=== PATIENT | female | born 1990 | race Caucasian/White ===

== ENCOUNTER 2022-07-02 16:09 | Outpatient (CLI) | payer OTHER, SELFPAY ==
[2022-07-02 12:40] LABS: Cholesterol* 186 mg/dL (90-199); HDL Cholesterol* 64 mg/dL (>=50); LDL Cholesterol Calculated 107 mg/dL (<100); Triglycerides* 74 mg/dL (40-149)
== END 2022-07-02 16:10 | disposition home or self-care (01) ==
PROVIDERS: PCP Emergency Medicine; Visit Provider Emergency Medicine
DX: Z13.6 Encounter for screening for cardiovascular disorders (principal); Z68.1 Body mass index [BMI] 19.9 or less, adult; Z13.1 Encounter for screening for diabetes mellitus
CPT/HCPCS: 80061; 83516; 84443

== ENCOUNTER 2024-02-07 19:19 | Outpatient (CLI) | payer OTHER, SELFPAY | END 2024-02-07 19:20 | disposition home or self-care (01) | PROVIDERS: PCP Emergency Medicine; Visit Provider Emergency Medicine | DX: R10.9 Unspecified abdominal pain (principal); M54.9 Dorsalgia, unspecified | CPT/HCPCS: 80053; 83690 ==

== ENCOUNTER 2024-03-15 16:58 | Outpatient (CLI) | payer OTHER, SELFPAY ==
--- NOTE | 2024-03-15 17:00 | US_ITS ---
Patient: ELSIE MCCARTHY Facility:?[facility] Patient ID:?[id number] Site Patient ID:?[id number]. Site :?[id number] Study:?US-Abdomen RUQ-03/15/2024 5:32:26 PM Ordering Physician:radames barrett Final Report: INDICATION: Abdominal pain COMPARISON: Ultrasound of the right upper quadrant from 09/27/2020. TECHNIQUE: Ultrasound examination of the right upper quadrant was performed. FINDINGS: The gallbladder is normal in appearance with no sign of cholelithiasis or acute cholecystitis. A sonographic Sellers sign is not present, with no pain over the gallbladder during ultrasound examination. The common bile duct is normal in caliber at 2 mm. The pancreatic head and body were examined, and these are normal in appearance. The abdominal aorta and visualized portions of the inferior vena cava are normal in appearance. The liver shows no sign of mass or contour abnormality, and there is no sign of ascites. There is normal antegrade color Doppler flow in the main portal vein which is normal in caliber at 8 millimeters. The right kidney is unremarkable. The previously seen nonobstructive 5 millimeter calculus in the right renal pelvis is no longer present. IMPRESSION: 1. Normal right upper quadrant ultrasound. 2. The previously seen nonobstructive calculus in the right renal pelvis is no longer present. Dictated by Warren Lane MD @ 03/16/2024 10:06:44 AM Signed by:?Warren Lane MD @03/16/2024 10:06:44 AM (Electronic Signature)
--- OUTSIDE RECORDS SUMMARY | 2024-03-15 17:01 | XMS_ITS | Referral Summary ---
Author Name Unknown Organization [address] Address [address] [place] [address] Care Team Providers Care Chain Sales Representative Name Role Phone Gaviota Grullon MD Primary Care Provider [phone]- [phone] Allergies No known active allergies Medications Medication Sig Dispensed Refills Start Date End Date Status [id number] acid 29 mg iron- 1 mg Chew [ [id number] ACID 29 MG IRON- 1 MG CHEW] Chew daily. 06/24/2020 Active propranolol (INDERAL) 10 MG tablet Take 10 mg by mouth Active Active Problems Problem Noted Date Diagnosed Date Encounter for elective induction of labor 2022 Encounter for triage in patient 023 Encounter for induction of labor 12/23/2021 06/24/2020 Social History Tobacco Use Types Packs/Day Years Used Date Smoking Tobacco: Never Smokeless Tobacco: Never Tobacco Cessation:Counseling Given: Not Answered Alcohol Use Standard Drinks/Week Comments Not Currently 0 (1 standard drink = 0.6 oz pur e alcohol) [place] Depression Scale Answer Date Recorded Last EPDS Total Score Not on file 11/12/2023 The thought of harming myself has occurred to me . Never 11/12/2023 Adolescent Education Answer Date Record ed Getting School Help Needed Not on file 08/05 Sex and Gender Information Value Date Recorded Sex Assigned at Not on file Gender Identity Not on file Sexual Orientation Not on file Last Filed Vital Signs Vital Sign Reading Time Taken Comments Blood Pressure 98/68 11/13/2023 8:46 AM [employer]ING [employer]IST Pulse 65 11/13/2023 8:46 AM [employer]ING [employer] Temperature 36.6 ??C (97.8 ??F) 11/13/2023 8:46 AM CS T Respiratory Rate 16 11/13/2023 8:46 AM [employer]ING SPECIALIST Oxygen Saturation 96% 11/13/2023 8:46 AM [employer]IST Inhaled Oxygen Concentration - - Weight 61.2 kg (135 lb) 11/11/2023 12:03 PM [employer]IST Height 160 cm (5' 3) 11/11/2023 12:03 PM [employer]IST Body Mass Index 23.91 11/11/2023 12:03 PM [employer]IST Plan of Treatment Not on file Procedures Procedure Name Priority Date/Time Associated Diagnosis Comments HIV 1&2 ANTIBODY (EXTERNAL RESULT) Routine 03/07/2023 12:00 PM CDT from Last 3 Months or Most Recently Relevant to Health Maintenance Results * HIV-1 Antibody (External Result) (03/07/2023 12:00 PM CDT) HIV 1&2 Antibody (External) Nonreactive Nonreactive EXTERNAL LAB 03/07/2023 12:0 0 PM CDT [facility] EXTERNAL RESULT EXTERNAL LAB External Lab from Last 3 Months or Most Recently Relevant to Health Maintenance Advance Directives For more information, please contact: [phone] * Full Code (Latest Code Status on File) Date Activated Date Inactivated Comments 11/11/2023 12:07 PM 11/13/2023 3:07 PM All basic and advanced life-sustaining interventions are performed as appropriate Question Answer Comments Code status determined by: Discussion with kristine nt/ legal decision maker * Full Code Date Activated Date Inactivated Comments 12/23/2021 8:22 AM 12/25/2021 4:14 PM All basic and advanced life-sustaining interventions are performed as appropriate Question Answer Comments Code status determined by: Discussion with kristine nt/ legal decision maker Care Teams Chain Sales Representative Relationship Specialty Start Date End Date Gaviota Grullon MD [facility] [address], [place] [address] PCP - General Family Practice 06/18/20
--- OUTSIDE RECORDS SUMMARY | 2024-03-15 17:01 | XMS_ITS | Patient Health Record ---
Author Name Unknown Organization [facility] Address [address] [place] [address] Care Team Providers Care City Supervisor Name Role Phone Gaviota Grullon Primary Care Provider Unavaila rich Brown, Angelina Unavailable [phone] Chey Mast Unavailable [phone] Ambrosio, Anders Unavailable [phone] Evi Raymundo Unavailable [phone] Sara Daly Unavailable [phone] Eul, Melony Unavailable [phone] Allergies No Known Allergies Results Component Value Reference Range Notes BD Affirm Reviewed date:12/26/2023 12:29:26 PM Interpretation:Normal Performing Lab: Notes/Report: Normal Trichomoniasis NEG Negative - Bacterial Vaginosis NEG Negative - Yeast NEG Negative - ANTIBODY SCREEN, RBC W/REFL ID, TITER AND AG Reviewed date:08/19/2023 01:26:27 PM Interpretation: Performing Lab:[facility], [place] [employer] FkseCD[address] Jose Elias Landa Notes/Report: 0; 0; 0; 0 ANTIBODY SCREEN, RBC W/REFL ID, TITER AND AG NO ANTIBODIES DETECTED No antibodies detected This assay is a screening test for the detection of for pretransfusion screening or for the medical Reference range red blood cell antibodies. The test is not to be used management of an alloimmunized . CBC (INCLUDES DIFF/PLT) Reviewed date:08/19/2023 01:26:21 PM Interpretation: Performing Lab:[facility] [employer], [employer] EmpireVipsIQ[address] Jose Elias Landa Notes/Report: 0; 0; 0; 0 WHITE BLOOD CELL COUNT 8.8 3.8-10.8 Thousand/uL RED BLOOD CELL COUNT 4.47 3.80-5.10 Million/uL HEMOGLOBIN 13.1 11.7-15.5 g/dL HEMATOCRIT 38.1 35.0-45.0 % MCV 85.2 80.0-100.0 fL MCH 29.3 27.0-33.0 pg MCHC 34.4 32.0-36.0 g/dL RDW 12.3 11.0-15.0 % PLATELET COUNT 263 140-400 Thousand/uL MPV 10.4 7.5-12.5 fL ABSOLUTE NEUTROPHILS 6433 0350-6800 cells/uL ABSOLUTE LYMPHOCYTES 7017 712-9545 cells/uL ABSOLUTE MONOCYTES 440 200-950 cells/uL ABSOLUTE EOSINOPHILS 70 15-500 cells/uL ABSOLUTE BASOPHILS 44 0-200 cells/uL NEUTROPHILS 73.1 LYMPHOCYTES 20.6 MONOCYTES 5.0 EOSINOPHILS 0.8 BASOPHILS 0.5 Urinalysis, Routine - IH Reviewed date:08/18/2023 09:22:14 AM Interpretation: Performing Lab: Notes/Report: Urine Color yellow Yellow - Shayy Appearance clear Clear - Glucose neg Bilirubin neg Ketone neg Specific Sasabe 1.010 Blood neg pH 6.5 Protein neg Urobilinogen 0.2 Nitrite neg Leukocytes 1+ RPR (DX) W/REFL TITER AND CO NFIRMATORY TESTING Reviewed date:08/19/2023 03:20:15 PM Interpretation: Performing Lab:[facility] [address] [address], Black Box BiofuelsYrklSM[address] Jose Elias Landa Notes/Report: 0; 0; 0; 0 RPR (DX) W/REFL TITER AND CONFIRMATORY TESTING NON-REACTIVE NON-REACTIVE GLUCOSE, GESTATIONAL SCREEN (50G)-135 CUTOFF Reviewed date:08/19/2023 01:48:56 PM Interpretation: Performing Lab:[facility] [address], Black Box BiofuelsBbzmLP[address] Jose Elias Landa Notes/Report: 0; 0; 0; 0 GLUCOSE, GESTATIONAL SCREEN (50G)-135 CUTOFF 102 <135 mg/dL CULTURE, URINE, ROUTINE Reviewed date:03/31/2023 05:14:51 PM Interpretation: Performing Lab:[facility] [address], Black Box BiofuelsEowhNL[address] Jose Elias Landa Notes/Report: CULTURE, URINE, ROUTINE SEE NOTE CULTURE, URINE, ROUTINE Specimen Source: Urine, clean catch Micro Number: [id number] Test Status: Final Result: No Growth Specimen Quality: Adequate Urinalysis, Routine - IH Reviewed date:03/28/2023 02:13:45 PM Interpretation: Performing Lab: Notes/Report: Urine Color yellow Yellow - Shayy Appearance clear Clear - Glucose neg Bilirubin neg Ketone neg Specific Sasabe 1.010 Blood neg pH 6.0 Protein neg Urobilinogen 0.2 Nitrite neg Leukocytes neg STREPTOCOCCUS, GROUP B CULTU RE Reviewed date:10/14/2023 04:58:43 PM Interpretation: Performing Lab:CB, [facility] [address] [facility] Jose Elias Leiva Cordell Notes/Report: STREPTOCOCCUS, GROUP B CULTURE SEE NOTE Test Status: Final achieved by swabbing both the lower vagina and Micro Number: [id number] Note per CDC guidelines optimal recovery is rectum (through the anal sphincter). Result: No group B Streptococcus isolated Specimen Source: Vaginal/anorectal STREPTOCOCCUS, GROUP B CULTURE Specimen Quality: Adequate Reason For Referral No Information Medications Medication SIG (Take, Route, Frequency, Duration) Notes Start Date End Date Status Metrogel 1 % 1 application Externally Once a day for 5 days 12/22/2023 Active Progesterone 200 MG 1 capsule Orally nightly at bedtime until 12 weeks gestation for 30 days 01/17/2023 Not-Taking Propranolol HCl 60mg, qd Acti ve Clotrimazole 1 % apply after each session Externally PRN for 14 days prn Active post natals Active Immunizations Vaccine Route Administration Date Status Comme nts Flucelvax Quadrivalant - FP Unknown 09/29/2021 Administered Fluzone VFC IM Intramuscular 01/16/2020 Administered TDAP Unknown 04/08/2020 Administered TDAP VACCINE >7 IM Unknown 09/29/2021 Administered TDAP VACCINE >7 IM IM Intramuscular 08/18/2023 Administere d Social History Tobacco Use: Social History Observation Description Date Details (start date - stop date) Never Smoker NA - NA Tobacco Use/Smoking Question Answer Notes Are you a nonsmoker Alcohol Screen (Audit-C) Question Answer Notes Did you have a drink containing alcohol in the p ast year? No Points 0 Interpretation Negative Problems Problem Type SNOMED Code ICD Code Onset Dates Problem Status W/U Status Risk Notes Problem 066790763 Other specified anxiety disorders (F41.8) Active confirmed Problem 130018779 Cystocele, unspecified (N81.10) Active confirmed Problem 8440929 Rectocele (N81.6) Active confirmed Problem 672303482 Other specified related conditions, first trimester (O26.891) Active confirmed Problem Maternal care fo r anti-D [Rh] antibodies, first trimester, not applicable or unspecified (O36.0110) Active confirmed Problem Maternal care fo r anti-D [Rh] antibodies, third trimester, not applicable or unspecified (O36.0130) Active confirmed Problem Maternal care fo r other rhesus isoimmunization, second trimester, not applicable or unspecified (O36.0920) Active confirmed Problem Maternal care fo r other rhesus isoimmunization, third trimester, not applicable or unspecified (O36.0930) Active confirmed Problem 575793326 Unspecified bloo d type, Rh negative (Z67.91) Active confirmed Problem 21342784 Amenorrhea (N91.2) Active confirmed Problem Abnormal uterine bleeding (221069812911 00) Abnormal uterine bleeding (N93.9) Active confirmed Problem 4426431 Female infertili ty (N97.9) Active confirmed Problem 459041190 PCOS (polycystic ovarian syndrome) (E28.2) Active confirmed Problem 726776631 Dysmenorrhea (N94.6) Active confirmed Problem 056786944 Dyspareunia due to medical condition in female (N94.19) Active confirmed Problem 80451543 Anxiety (F41.9) Active confirmed Problem 83160709 Constipation, unspecified constipation type (K59.00) Active confirmed Problem 66297298 Anorgasmia of female (F52.31) Active confirmed Problem 80036270 Dyspareunia in female (N94.10) Active confirmed Problem 68599012 Oligomenorrhea (N91.5) Active confirmed Problem 69476925 Postcoital bleeding (N93.0) Active confirmed Problem Missed period (16353053) Missed menses (N92.6) Active confirmed Problem Migraine with aura (9992881) Migraine with aura and without status migrainosus, not intractable (G43.109) Active confirmed Problem 962528761 Pelvic floor weakness in female (N81.89) Active confirmed Problem 34698825 Menstrual migrai ne without status migrainosus, not intractable (G43.829) Active confirmed Problem Missed period (47003664) Missed period (N92.6) Active confirmed Problem 029152250 Migraine without aura and without status migrainosus, not intractable (G43.009) Active confirmed Problem Abnormal glucose tolerance in mother complicating (O99.810) Active confirmed Vital Signs Blood pressure diastolic 58 mm Hg 12/22/2023 Height 62.75 in 12/22/2023 Blood pressure systolic 100 mm Hg 12/22/2023 Weight 112 lbs 12/22/2023 BMI 20 kg/m2 12/22/2023 Encounters Encounter Location Date Provider Diagnosis [facility] [address] [place] [address] 09/02/2023 Anders Valente [facility] [address] [place] [address] 05/02/2023 Anders Valente [facility] [address] [place] [address] [place] [address] 08/17/2023 Sara Daly [facility] [address] [facility] [address] [place] [address] [facility] [address] [place], [place] [id number] 12/05/2023 Chey Mast [facility] [address] [place] [address] 12/22/2023 Evi Raymundo [facility] [address] [place] [address] 04/03/2023 Anders Valente [facility] [address] [place] [address] 04/08/2023 Anders Valente [facility] [address] [place] [address] 05/05/2023 Anders Valente [facility] [address] [place] [address] 05/05/2023 Anders Valente [facility] [address] [place] [address] 09/05/2023 Anders Valente [facility] [id number] [place] [address] 10/26/2023 Sara Daly [facility] [address] [place] [address] 11/22/2023 Sara Daly [address] [place] [address] 01/25/2024 Angelina Brown [facility] [address] [place] [address] 03/28/2023 Anders Valente First trimester Z34.91 and Encounter for supervision of other normal , first trimester Z34.[address] [address] 04/29/2023 Sara Daly Encounter for supervision of other normal in second trimester Z34.82 ; Underweight R63.6 and 12 weeks gestation of Z3A.[address] [address] 06/20/2023 Anders Valenet Encounter for supervision of other normal , second trimester Z34.82 ; Marginal insertion of umbilical cord affecting management of mother in second trimester O43.192 and Placental cyst affecting in second trimester O43.[address] [address] 07/07/2023 Anders Valente Encounter for supervision of other normal , second trimester Z34.[address] [address] 07/19/2023 Sara Daly 23 weeks gestation o f Z3A.23 and Supervision of high risk in second trimester O09.[address] [address] 03/21/2023 Anders Valente Encounter for supervision of other normal , first trimester Z34.81 ; Other specified related conditions, unspecified trimester O26.899 and Unspecified blood type, Rh negative Z67.[address] [address] 08/18/2023 Anders Valente Encounter for supervision of other normal in second trimester Z34.82 and Rh negative status during in third trimester O09.[address] [address] 09/22/2023 Evi Raymundo Encounter for supervision of other normal , third trimester Z34.[address] [address] 10/04/2023 Melony Eul Encounter for supervision of other normal , third trimester Z34.[address] [address] 10/11/2023 Melony Eul Encounter for supervision of other normal , third trimester Z34.[address] [address] 10/25/2023 Sara Daly Fundal height low fo r dates in third trimester O26.843 ; 37 weeks gestation of Z3A.37 and Supervision of high risk in third trimester O09.[address] [address] 10/26/2023 Sara Daly Encounter for supervision of other normal , third trimester Z34.83 and 38 weeks gestation of Z3A.[address] [address] 11/01/2023 Sara Daly Encounter for supervision of other normal , third trimester Z34.83 and 38 weeks gestation of Z3A.[address] [address] 11/10/2023 Evi Raymundo Encounter for supervision of other normal , third trimester Z34.[address] [address] 03/28/2023 Anders Valente Multigravida in firs t trimester Z34.[address] [address] 04/22/2023 Anders Valente Encounter for screening for chromosomal anomalies Z36.0 [facility] [address] [place] [address] 12/22/2023 Evi Raymundo Vaginal irritation N89.8 [facility] hospital [address] [place] [address] 10/11/2023 Melony Eul screening for streptococcus B Z36.[address] [address] 08/18/2023 Sara Daly Encounter for supervision of other normal in third trimester Z34.83 and Maternal care for other rhesus isoimmunization, third trimester, not applicable or unspecified O36.[address] [address] 12/22/2023 Evi Raymundo Encounter for routin e follow-up Z39.2 ; Acute vaginitis N76.0 and Other specified bacterial agents as the cause of diseases classified elsewhere B96.89 [facility] [address] [place] [address] 06/20/2023 Anders Valente Admission for routin e ultrasound Z36.89 [facility] hospital [address] [place] [address] 03/21/2023 Sara Daly Encounter for supervision of other normal , unspecified trimester Z34.[address] [address] 08/18/2023 Sara Daly Supervision of other high risk pregnancies, third trimester O09.893 and 28 weeks gestation of Z3A.[address] [address] 10/26/2023 Sara Daly Supervision of other high risk pregnancies, third trimester O09.893 and 38 weeks gestation of Z3A.[address] [address] 10/11/2023 Evi Raymundo Supervision of other high risk pregnancies, third trimester O09.893 and 35 weeks gestation of Z3A.35 [facility] [address] [place] [address] 09/22/2023 Evi Raymundo Encounter for supervision of high risk in third trimester, antepartum O09.93 and 33 weeks gestation of Z3A.33 [facility] [address] [place] [address] 07/07/2023 Anders Valente Encounter for supervision of other normal , unspecified trimester Z34.80 and 22 weeks gestation of Z3A.22 [facility] [address] [place] [address] 11/23/2023 Sara Daly Care and examination of lactating mother Z39.1 [facility] [address] [place] [address] 03/28/2023 Anders Valente [address] [place] [address] 09/02/2023 Evi Raymundo Encounter for supervision of other normal , third trimester Z34.83 [facility] [address] [place] [address] 09/02/2023 Evi Raymundo Assessments Encounter Date Diagnosis (ICD Code) Assessment Notes Treat ment Notes Treatment Clinical Notes 10/25/2023 Fundal height low for dates in third trimester (ICD-10 - O26.843) 10/26/2023 Supervision of other high risk pregnancies, third trimester (ICD-10 - O09.893) 10/26/2023 38 weeks gestation of (ICD-10 - Z3A.38) 10/26/2023 Encounter for supervision of other normal , third trimester (ICD-10 - Z34.83) 10/26/2023 38 weeks gestation of (ICD-10 - Z3A.38) 11/01/2023 Encounter for supervision of other normal , third trimester (ICD-10 - Z34.83) 11/01/2023 38 weeks gestation of (ICD-10 - Z3A.38) 11/10/2023 Encounter for supervision of other normal , third trimester (ICD-10 - Z34.83) 11/23/2023 Care and examination of lactating mother (ICD-10 - Z39.1) Weighted feed not completed today due to time contraints with scheduling error. Mother's main concern was getting assessed for yeast/thrush. Suspect itching was associated with engorgement. Suspect she is also feeling her let down. No evidence of yeast or thrush on exam. However, given her history will give her medication to utilize should symptoms ensue. Discussed importance of treating baby if thrush develops. Proper latch techniques discussed. Feeding not painful today. F/u for full consult if problems persist. 12/22/2023 Acute vaginitis (ICD-10 - N76.0) 12/22/2023 Encounter for routine follow-up (ICD-10 - Z39.2) 12/22/2023 Vaginal irritation (ICD-10 - N89.8) 03/21/2023 Encounter for supervision of other normal , unspecified trimester (ICD-10 - Z34.80) 03/21/2023 Other specified related conditions, unspecified trimester (ICD-10 - O26.899) 03/21/2023 Encounter for supervision of other normal , first trimester (ICD-10 - Z34.81) 03/28/2023 Encounter for supervision of other normal , first trimester (ICD-10 - Z34.81) 03/28/2023 First trimester (ICD-10 - Z34.91) 06/20/2023 Admission for routine ultrasound (ICD-10 - Z36.89) 06/20/2023 Encounter for supervision of other normal , second trimester (ICD-10 - Z34.82) 06/20/2023 Marginal insertion of umbilical cord affecting management of mother in second trimester (ICD-10 - O43.192) 07/07/2023 Encounter for supervision of other normal , unspecified trimester (ICD-10 - Z34.80) 07/07/2023 22 weeks gestation of (ICD-10 - Z3A.22) 07/07/2023 Encounter for supervision of other normal , second trimester (ICD-10 - Z34.82) 07/19/2023 23 weeks gestation of (ICD-10 - Z3A.23) 07/19/2023 Supervision of high risk in second trimester (ICD-10 - O09.92) 08/18/2023 Encounter for supervision of other normal in third trimester (ICD-10 - Z34.83) 08/18/2023 Supervision of other high risk pregnancies, third trimester (ICD-10 - O09.893) 08/18/2023 28 weeks gestation of (ICD-10 - Z3A.28) 08/18/2023 Encounter for supervision of other normal in second trimester (ICD-10 - Z34.82) 09/22/2023 33 weeks gestation of (ICD-10 - Z3A.33) 09/22/2023 Encounter for supervision of high risk in third trimester, antepartum (ICD-10 - O09.93) 09/22/2023 Encounter for supervision of other normal , third trimester (ICD-10 - Z34.83) 10/04/2023 Encounter for supervision of other normal , third trimester (ICD-10 - Z34.83) 10/11/2023 Supervision of other high risk pregnancies, third trimester (ICD-10 - O09.893) 10/11/2023 35 weeks gestation of (ICD-10 - Z3A.35) 10/11/2023 Encounter for supervision of other normal , third trimester (ICD-10 - Z34.83) 10/11/2023 screening for streptococcus B (ICD-10 - Z36.85) 10/25/2023 37 weeks gestation of (ICD-10 - Z3A.37) 04/29/2023 Underweight (ICD-10 - R63.6) 04/29/2023 Encounter for supervision of other normal in second trimester (ICD-10 - Z34.82) 09/02/2023 Encounter for supervision of other normal , third trimester (ICD-10 - Z34.83) 04/22/2023 Encounter for screening for chromosomal anomalies (ICD-10 - Z36.0) 03/28/2023 Multigravida in first trimester (ICD-10 - Z34.81) 04/29/2023 12 weeks gestation of (ICD-10 - Z3A.12) 10/25/2023 Supervision of high risk in third trimester (ICD-10 - O09.93) 08/18/2023 Rh negative status during in third trimester (ICD-10 - O09.893) 08/18/2023 Maternal care for other rhesus isoimmunization, third trimester, not applicable or unspecified (ICD-10 - O36.0930) 06/20/2023 Placental cyst affecting in second trimester (ICD-10 - O43.192) 03/21/2023 Unspecified blood type, Rh negative (ICD-10 - Z67.91) 12/22/2023 Other specified bacterial agents as the cause of diseases classified elsewhere (ICD-10 - B96.89) 1. Patient desires empiric treatment for BV. She has had in the past and this feels similar. We discussed that the concern would be that she would potentially get tx for the wrong diagnosis which could prolong her discomfort. She feel comfortable taking this risk as she is very uncomfortable and will be very busy/active this weekend. As there are several clinical signs which point to BV, I will send empiric tx. 03/21/2023 Other Pelvic US results reviewed showing SIUP +FHT's with RICHARD of 11/09/23 c/w LMP date Discussed OTC vitamin brands she can look for to start since she is having GI upset with current therapy OB1 visit as scheduled, does not need repeat viability US. Had OB1 labs completed, but will need UA/UC. Pap up to date. 15 min. spent in chart prep, reviewing above information and documenting today's visit note 12/22/2023 Other Discussed spacing and all options including R/B/A for control methods. Declines contraception. RTC in 1 year for annual exam Plan Of Treatment Pending Test Test Name Order Date Panorama Test 04/22/2023 Insurance Providers Payer Name Payer Address Payer Phone Subscriber Number Group Number Insured Name Patient Relationship to Insured Coverage Start Date Coverage End Date [employer] (Ins. Bill) Claims Department [address] [place] [address] [id number] ELSIE MCCARTHY Self - patient is the insured Medications Administered Medication Instructions Date of Administration Dosage Notes RHOGAM 04/08/2020 1500 units RHOGAM 09/29/2021 1500 units RHOGAM 03/07/2023 1500 units RHOGAM 08/18/2023 1500 units Medical (General) History Medical History History ICD Code high cholesterol PCOS Migraines Surgical History Surgery Date(Month/Year) Laparoscopy, excision left u terosacral peritoneal implant, cauterization of small cul-de-sac endometriotic implant 08/18/2022 breast augmentation 12/2022
--- OUTSIDE RECORDS SUMMARY | 2024-03-15 17:01 | XMS_ITS | Encounter Summary ---
Author Name Unknown Organization [facility] Address [address] [place] [address] Care Team Providers Care Department Of Natural Resources Officer Name Role Phone Gaviota Grullon MD Primary Care Provider [phone] Encounter Details Date Type Department Care Team (Late st Contact Info) Description 06/28/2020 [facility] - [facility] Claire Em, RN Social History Tobacco Use Types Packs/Day Years Used Date Smoking Tobacco: Never Smokeless Tobacco: Never Alcohol Use Standard Drinks/Week Comments Not Currently 0 (1 standard drink = 0.6 oz pur e alcohol) Sex and Gender Information Value Date Recorded Sex Assigned at Not on file Gender Identity Not on file Sexual Orientation Not on file documented as of this encounter Miscellaneous Notes * Note - Claire Em RN - 06/28/2020 11:10 AM CDT This note was copied from a baby's chart. Follow up with Zenaida to see how feedings are going. Baby at the breast during visit, baby has a wide gape, audible swallows every 1-2 sucks and engaged. Zenaida is discharged and pumping over night and getting increasing amounts of colostrum. Will follow up as needed. documented in this encounter Plan of Treatment Not on file documented as of this encounter Visit Diagnoses Not on filedocumented in this encounter Additional Health Concerns Infection Onset Date Last Indicated Resolved Time Recovered COVID 12/23/2021 12/23/2021 03/08/2022 1 1:39 PM CDT documented as of this encounter Care Teams Department Of Natural Resources Officer Relationship Specialty Start Date End Date Gaviota Grullon MD [facility] [address] [place] [address] PCP - General Family Practice 06/18/20 documented as of this encounter
--- OUTSIDE RECORDS SUMMARY | 2024-03-15 17:01 | XMS_ITS | Data Portability ---
Author Name Unknown Address [address] [place] [id number] Phone [phone] Organization [facility] MULTIPLE RESAW OPERATOR, [id number] Address [address] [place] [address] Assessment Encounter Date Assessment Date Assessment LastModified by Organization Details LastModified Time 06/02/2023 06/02/2023 I spent a total of 30 minutes providing care for this patient including: preparing to see the patient, obtaining a medical history, completing a medically appropriate physical exam, completing documentation of visit information and plans in the EMR, counseling the patient and/or caregiver regarding her diagnosis, treatment options and follow up plans, as well as any necessary communication of subsequent test results to the patient, reviewing medical records, , chaseuepfel Not available 06/02/2023 18:33:10 Plan of Treatment Reminders Order Date Submit Date Provider Last Modified By Organization Details Last Modified Time Details Appointments None record ed. Lab None record ed. Referral None record ed. Procedures None record ed. Surgeries None record ed. Imaging None record ed. Medication Orders None record ed. Patient TargetsNo targets recorded. Patient InstructionsNo instructions recorded. Reason for Referral None Reported. Results Created Date Observation Date Name Description Value Unit Range Abnormal Flag LastModifiedBy Organization Detail LastModifiedTime Result Notes None recorded. Problems Name Status Onset Date Resolution Date Notes Provider Name and Address Organization Details Recorded Time Completed 023 10/19/2023 DIANA Pleitez MULTIPLE RESAW OPERATOR 3 12:14:52 History of growth retardation Completed serial growth US 3rd tri DIANA Pleitez MULTIPLE RESAW OPERATOR 3 12:14:50 RhD negative Completed s/p Rhogam 02/17/23 (early bleeding) Hodan Hardy [facility], [place] [facility] MULTIPLE RESAW OPERATOR 3 12:14:50 Problem Notes None recorded. Procedures Surgical History Date Name Laterality Status Provider Name and Address Organization Details Recorded Time 3 Date of Last Pap Smear completed Elysia Hendrix [place], [place] - [facility] MULTIPLE RESAW OPERATOR 06/02/2023 16:20:35 2 Laparoscopy completed Elysia Leibcanupam [facility], [facility] MULTIPLE RESAW OPERATOR 06/02/2023 16:21:26 Imaging Results None recorded. Procedure Notes None recorded. Medical Equipment None Reported. Allergies No known drug allergies Medications Name Sig Start Date Stop Date Status Note LastModified by Organization Details LastModified Time active Not Available Not Avai lable Not Available Vitals Date Recorded Body weight Provider Name an d Address Organization Details Last Updated DateTime 06/02/2023 64210.035792 [place] [address] [facility],[address], [place], [address], [facility] MULTIPLE RESAW OPERATOR 06/02/2023 15:45:05 Date Recorded Body mass index (BMI) Body height Systolic blood pressure Diastolic blood pressure Provider Name and Address Organization Details Last Updated DateTime 06/02/2023 19.1 kg/m2 160.02 cm 90 mm[Hg] 60 mm[Hg] Elysia awan, [place] - [facility] MULTIPLE RESAW OPERATOR 06/02/2023 15:32:02 Social History Question Answer Notes LastModified by Organizat ion Details LastModified Time Tobacco Smoking Status Never Smoker Elysia Hendrix [place], [place] [facility] MULTIPLE RESAW OPERATOR 06/02/2023 16:25:13 What Is Your Level Of Alcohol Consumption? None Information not available 06/02/2023 What Is Your Level Of Caffeine Consumption? Occasional Information not available 06/02/2023 Spouse/Partners Name Oscar Dillard Information not available 06/02/2023 What Is Your Relationship Status? Information not available 06/02/2023 Do You Use Any Illicit Or Recreational Drugs? No Information not available 06/02/2023 Sex: Female Functional Status None recorded. Mental Status None recorded. Family History Relationship Description Onset Age of this Age Resolved Age Notes Paternal Grandmother Malignant tumor of colon Maternal Grandmother Malignant tumor of pancreas Father Hyperlipidemia Sister Hyperlipidemia Medical History Condition Response Neurology- Headaches/Migraines Y Gynecological History Statement/Question Response Date of Last Pap Smear 11/14/2022 Age at Menarche: 15 Date of LMP 02/02/2023 Obstetrics History GPAL:G 3 P 2 0 0 2 Type Value Full Term 2 Living 2 Total 3 Immunizations Vaccine Type Date Status Provider Name and Address Organization Details Recorded Time MMR 07/14/2005 completed Elysia Leidner null, [place] - [facility] MULTIPLE RESAW OPERATOR 06/02/2023 15:28:14 Tdap 04/08/2020 completed Elysia Leidner [place], [place] [facility] MULTIPLE RESAW OPERATOR 06/02/2023 15:28:14 Tdap 05/11/2012 completed Elysia Leidner [place], [place] [facility] MULTIPLE RESAW OPERATOR 06/02/2023 15:28:14 DTP 04/06/1993 completed Elysia Leidner [place], [place] [facility] MULTIPLE RESAW OPERATOR 06/02/2023 15:28:14 HPV, quadrivalent 05/03/2007 completed Elysia Leid ner [place], [place] [facility]ULTIPLE RESAW OPERATOR 06/02/2023 15:28:14 HPV, quadrivalent 07/02/2010 completed Elysia Leid ner [place] [facility]ULTIPLE RESAW OPER[facility] 06/02/2023 15:28:14 HPV, quadrivalent 07/04/2007 completed Elysia Leid ner [place] [facility]ULTIPLE RESAW OPERATOR 06/02/2023 15:28:14 Hep B, adult 07/22/1993 completed Elysia Leid[place], [place] [facility]ULTIPLE RESAW OPERATOR 06/02/2023 15:28:14 Hep A, ped/adol, 2 dose 05/03/2007 completed Elysia Leid[place] [facility]ULTIPLE RESAW OPERATOR 06/02/2023 15:28:14 Hep A, ped/adol, 2 dose 07/02/2010 completed Elysia [place] [facility]ULT[facility]LE RESAW OPERATOR 06/02/2023 15:28:14 typhoid, ViCPs 05/25/2016 completed Elysia [place] [facility]ULTIPLE RESAW OPERATOR 06/02/2023 15:28:14 Hib (PRP-T) 04/06/1993 completed Elysia [place] [facility]ULTIPLE RESAW OPERATOR 06/02/2023 15:28:14 meningococcal MCV4P 07/04/2007 completed Elysia Le [place] [facility]ULTIPLE RESAW OPERATOR 06/02/2023 15:28:14 meningococcal MCV4P 07/05/2011 completed Elysia Le [place] [facility]ULTIPLE RESAW OPERATOR 06/02/2023 15:28:14 Influenza, injectable, MDCK, preservative free 01/16/2020 completed Elysia Leidner [place] [facility] MULTIPLE RESAW OPERATOR 06/02/2023 15:28:14 Past Encounters Encounter ID Performer Location Encounter Start Date Encounter Closed Date Diagnosis/Indication Diagnosis SNOMED-CT Code [id number] CEASAR RICO MD [id number] [facility] [address] [facility], [address] [place] [address] 06/02/2023 15:24:33 06/03/2023 09:06:58 Gestation period, 17 weeks 29961769 RhD negative [id number] History of previous baby with growth restriction 344934327 Health Concerns Section Related Observation LastModified by Organization Detai ls LastModified Time None Recorded Concern Status LastModified by Organization Details LastModified Time None Recorded Advance Directives Directive None Recorded Payers Encounter Date Sequence Insurance Name Policy Number Policy Tate Covered Member ID Tate Member ID Guarantor Name 06/02/2023 1 [facility] Zenaida Dillard [id number] Zenaida Dillard Notes Date Note Type Note Provider Name and Address Organization Details Recorded Time 06/02/2023 text/html HPI Notes: [facility] ([facility]) Reported by patient. Context: planned : yes Confirmation of : ultrasound Medications: vitamins: yes; Folic Acid: no Associated Signs & Symptoms: no nausea; no vomiting Risk Factors: history of IUGR in first Evaluation: testing completed Notes: [facility] from [facility] due to insurance change. Hx IUGR in first , VAVD due to tones. Second uncomplicated . Serial growths due to IUGR. This - LMP dating c/w early ultrasound. NIPT wnl per patient report. Labs not seen in records but looked at through portal on patient's phone. Message [place] [address] [facility],[address], [place], [address], [place] [facility] MULTIPLE RESAW OPERATOR 06/02/2023 18:40:51 OBGyn Episode Ob Episode Information Episode Created Date Number of Fetuses Patient Bloodtype Patient rh Status Prepregnancy Weight lbs Domestic Partner Domestic Partner Phone Father Name Cal[employer] Equipment Operator Status 06/02/20 1 CLOSED Fetus Data First Name Last Name Admitted to NICU Weight (g) Sex Living Outcome Pediatric Complications Fetus ID Race Codes Race Delivery Type [phone] [phone] M [id number] Richard Calculation Initial Richard Date Initial Exam Date Initial Exam Provider Initial Ultrasound Date Last Menstrual Period Date Ultra Sound Weeks Gestation 0 Eighteen To Twenty Week Richard Update Ultra Sound Date Fundal Height At Umbil Quickening Date Ultra Sound Latest Weeks Gestation Final Richard Confirmed By Final Richard Confirmed Date Final Richard Date Ultra Sound Latest Days Gestation 0 0 Menstrual History Last Menstrual Date Menses Monthly On Bcp Conception Prior Menses Frequency Hcg Plus Date Menarche Onset Age Delivery Information Delivery Date Delivery Type Labor Anesthesia Weeks Gestation Incision Type Labor Labor Length Hrs Delivered By Post Complications Tubal Sterilization Discharge Date Comments 2 41 Discharge Information Feeding Method Contraceptive Method Maternal HG B and HCT Levels Ob Episode Information Episode Created Date Number of Fetuses Patient Bloodtype Patient rh Status Prepregnancy Weight lbs Domestic Partner Domestic Partner Phone Father Name Cal[employer] Equipment Operator Status 06/02/20 1 A Negative 101 CLOSED Fetus Data First Name Last Name Admitted to NICU Weight (g) Sex Living Outcome Pediatric Complications Fetus ID Race Codes Race Delivery Type [id number] Problems Problem Notes Problem Name Start Date End Date Resolution Snomed Code Not e RhD negative [id number] s/p Rho cassandra 02/17/23 (early bleeding) History of growth retardation [id number] serial growth US 3rd tri Richard Calculation Initial Richard Date Initial Exam Date Initial Exam Provider Initial Ultrasound Date Last Menstrual Period Date Ultra Sound Weeks Gestation 11/09/2023 06/02/2023 02/03/2023 0 Eighteen To Twenty Week Richard Update Ultra Sound Date Fundal Height At Umbil Quickening Date Ultra Sound Latest Weeks Gestation Final Richard Confirmed By Final Richard Confirmed Date Final Richard Date Ultra Sound Latest Days Gestation 0 [email or web address] 06/02/2023 11/09/20 23 0 Pre- Flowsheet Flowsheet Date 06/02/2023 Joseph Score Blood Edema Fundus Height Fundus Units Glucose Ketones Leukocytes Nitrite Labor Signs Protein Cervic Dilation Cervic Effacement Cervic Station Type Weight in lbs BP Diastolic BP Location Tested BP Systolic BP Type 60 90 Fetus Heart Rate Present A Present Fetus Movement Comments 32yo at 17w1d with E DD 11/09/2023 by LMP c/w early US (reviewed records and 11/09 listed as RICHARD). [facility] from [facility] due to insurance change. Has anatomy US scheduled through them and prefers to keep. labs reviewed on patient's phone, unable to find in [facility] records (message sent to MR). Rh negative, s/p rhogam in first trimester for bleeding. Hx IUGR first . VAVD for tones. Second uneventful . Will plan for serial US in 3rd trimester due to growth restriction history. Menstrual History Last Menstrual Date Menses Monthly On Bcp Conception Prior Menses Frequency Hcg Plus Date Menarche Onset Age 0302/03/2023 Genetic Screening And Infection History Question Response Note Thalassemia (Uzbek, Nepali, Mediterranean, Or Background): MCV < 80 false Intellectual Disability/Autism false History of HIV false Congenital Heart Defect false Muscular Dystrophy false Sickle Cell Disease Or Trait () false Patient Or Partner Has History Of Genital Herpes false Hemophilia Or Other Blood Disorders false Diego Disease false Patient's Age Will Be 35 Years Or Older At Estim ated Date of Delivery false Maternal Metabolic Disorder (eg, Type 1 Diabetes , PKU) false Rodrigue-Sachs (eg, Adventism, Cajun, Cook Islander-[place]yandotte) f alse Other Infection History false Bay[place]'s Chorea false Cystic Fibrosis false Recurrent Loss, Or A Stillbirth false Rash Or Viral Illness Since Last Menstrual Perio d false Live With Someone With TB Or Exposed To TB false If Yes, Was Person Tested For Fragile X? false Prior GBS-infected child false Any Other Genetic History false Previous Hemoglobinopathy Evaluation false History of Hepatitis false Down Syndrome false Other Inherited Genetic Or Chromosomal Disorder false Previous Carrier Screening Test false Patient Or Baby's Father Had A Child With Defects Not Listed Above false Neural Tube Defect (Meningomyelocele, Spina Bifi da, Or Anencephaly) false History Of STD, Gonorrhea, Chlamydia, HPV, Syphi lis false Delivery Information Delivery Date Delivery Type Labor Anesthesia Weeks Gestation Incision Type Labor Labor Length Hrs Delivered By Post Complications Tubal Sterilization Discharge Date Comments Discharge Information Feeding Method Contraceptive Method Maternal HG B and HCT Levels Ob Episode Information Episode Created Date Number of Fetuses Patient Bloodtype Patient rh Status Prepregnancy Weight lbs Domestic Partner Domestic Partner Phone Father Name Cal[employer] Equipment Operator Status 06/02/20 23 1 CLOSED Fetus Data First Name Last Name Admitted to NICU Weight (g) Sex Living Outcome Pediatric Complications Fetus ID Race Codes Race Delivery Type [phone] [phone] F [id number] Richard Calculation Initial Richard Date Initial Exam Date Initial Exam Provider Initial Ultrasound Date Last Menstrual Period Date Ultra Sound Weeks Gestation 0 Eighteen To Twenty Week Richard Update Ultra Sound Date Fundal Height At Umbil Quickening Date Ultra Sound Latest Weeks Gestation Final Richard Confirmed By Final Richard Confirmed Date Final Richard Date Ultra Sound Latest Days Gestation 0 0 Menstrual History Last Menstrual Date Menses Monthly On Bcp Conception Prior Menses Frequency Hcg Plus Date Menarche Onset Age Delivery Information Delivery Date Delivery Type Labor Anesthesia Weeks Gestation Incision Type Labor Labor Length Hrs Delivered By Post Complications Tubal Sterilization Discharge Date Comments 0 39 Discharge Information Feeding Method Contraceptive Method Maternal HG B and HCT Levels
--- OUTSIDE RECORDS SUMMARY | 2024-03-15 17:01 | XMS_ITS | Clinical Summary ---
Author Name Unknown Organization [facility] Address [address] [place] [address] Care Team Providers Care Bridge Mechanic Name Role Phone Gaviota Grullon MD Primary Care Provider [phone] Allergies No known active allergies Medications Medication Sig Dispensed Refills Start Date End Date Status ke155-[id number] acid 29 mg iron- 1 mg Chew [ [id number] ACID 29 MG IRON- 1 MG CHEW] [...] drink = 0.6 oz pur e alcohol) [place] Depression Scale Answer Date Recorded Last EPDS [...] Comments Blood Pressure 98/68 11/13/2023 8:46 AM ORAL HYGIENIST Pulse 65 11/13/2023 8:46 AM ORAL HYGIENIST Temperature 36.6 ??C (97.8 ??F) 11/13/2023 8:46 AM CS T Respiratory Rate 16 11/13/2023 8:46 AM ORAL HYGIENIST Oxygen Saturation 96% 11/13/2023 8:46 AM ORAL HYGIENIST Inhaled Oxygen Concentration - - Weight 61.2 kg (135 lb) 11/11/2023 12:03 PM ORAL HYGIENIST Height 160 cm (5' 3) 11/11/2023 12:03 PM ORAL HYGIENIST Body Mass Index 23.91 11/11/2023 12:03 PM ORAL HYGIENIST Plan of Treatment Health Maintenance Due Date Last Done Comments ADVANCE CARE PLANNING 1992 ANNUAL REVIEW OF HM ORDERS 1992 YEARLY PREVENTIVE VISIT 1992 HEPATITIS B IMMUNIZATION (2 of 3 - 3-dose series) 08/19/1993 07/22/1993 COVID-19 Vaccine (#1) 1997 Pneumococcal Vaccine: Pediatrics (0 to 5 Years) and At-Risk Patients (6 to 64 Years) (1 of 2 - PCV) 1998 HEPATITIS C SCREENING 2010 PAP 2013 INFLUENZA VACCINE (#1) 2023 01/16/2020 PHQ-2 (once per calendar year) 2023 DTAP/TDAP/TD IMMUNIZATION (5 - Td or Tdap) 08/18/2033 08/18/2023, 04/08/2020, 05/11/2012, Additional history exists HPV IMMUNIZATION Completed 07/02/2010, , 05/03/2007 MENINGITIS IMMUNIZATION Completed 07/05/2011, 07/04 HIV SCREENING Completed 03/07/2023, 05/26/2021 IPV IMMUNIZATION Aged Out No longer e ligible based on patient's age to complete this topic RSV MONOCLONAL ANTIBODY Aged Out No l onger eligible based on patient's age to complete this topic Procedures Procedure Name Priority Date/Time Associated Diagnosis Comments HIV 1&2 ANTIBODY (EXTERNAL RESULT) Routine 03/07/2023 12:00 PM CDT from Last 3 Months or Most Recently Relevant to Health Maintenance Results * HIV-1 Antibody (External Result) (03/07/2023 12:00 PM CDT) HIV 1&2 Antibody (External) Nonreactive Nonreactive EXTERNAL LAB 03/07/2023 12:0 0 PM CDT Chey Antonio APRN CNM LAB - [facility] EXTERNAL RESULT EXTERNAL LAB External Lab from Last 3 Months or Most Recently Relevant to Health Maintenance Advance Directives For more information, please contact: [phone] * Full Code (Latest Code Status on File) Date Activated Date Inactivated Comments 11/11/2023 12:07 PM 11/13/2023 3:07 PM All basic and advanced life-sustaining interventions are performed as appropriate Question Answer Comments Code status determined by: Discussion with patie nt/ legal decision maker * Full Code Date Activated Date Inactivated Comments 12/23/2021 8:22 AM 12/25/2021 4:14 PM All basic and advanced life-sustaining interventions are performed as appropriate Question Answer Comments Code status determined by: Discussion with patie nt/ legal decision maker Care Teams Bridge Mechanic Relationship Specialty Start Date End Date Gaviota Grullon MD [facility] [address] [place] [address] PCP - General Family Practice 06/18/20
== END 2024-03-15 16:59 | disposition home or self-care (01) ==
LOC: US 16:59
PROVIDERS: PCP Emergency Medicine; Visit Provider Emergency Medicine
DX: R10.9 Unspecified abdominal pain (principal)
CPT/HCPCS: 76705

== ENCOUNTER 2024-11-30 20:27 | Emergency (ER) | payer OTHER, SELFPAY ==
[2024-11-30 20:32] VITALS: BP 116/83; PULSE 89; RESP 16; TEMP 37.4; O2SAT 100; BMI 19.2
--- NOTE | 2024-11-30 20:42 | CRLHL7_ITS ---
For Patients: As a result of the Century Cures Act, medical imaging exams and procedure reports are released immediately into your electronic medical record. You may view this report before your referring provider. If you have questions, please contact your health care provider. INDICATION: Vaginal bleeding. COMPARISON: None available. TECHNIQUE: Ultrasound OB pelvis with real time bennett scale imaging and color Doppler analysis. FINDINGS: Sonographic imaging demonstrates a single living intrauterine gestation. The fetus has a regular cardiac rate of 144 beats per minute. The fetus has a transverse orientation with the head to the maternal left. The placenta lies posteriorly without evidence of placental abruption. The placental edge partially covers the internal cervical os compatible with placenta previa. The cervix is closed and measures 4.3 cm in length. Amniotic fluid volume appears normal with deepest pocket measuring 4.1 cm. IMPRESSION: 1. Single living intrauterine gestation in transverse position with heart rate 144 beats per minute. 2. The placental edge partially covers the internal cervical os compatible with placenta previa. Recommend close clinical follow-up and referral to maternal medicine specialist. Dictated by Ruby Pedroza MD @ 11/30/2024 9:53:29 PM (Electronically Signed)
--- NOTE | 2024-11-30 20:43 | ED.GENADULT ---
HPI - General Adult General Date Seen: 11/30/24 Chief complaint: Vaginal Bleeding Stated complaint: 17wks preg - bleeding Time Seen by Provider: 11/30/24 20:32 Source: patient Mode of arrival: ambulatory Limitations: no limitations History of Present Illness HPI narrative: Patient is a 34-year-old female presenting to emergency department for vaginal bleeding. She is A1 currently 17 weeks . Has had a previous miscarriage. No issues with the other 3 pregnancies. States she had some vaginal bleeding after sex last night. She states those about enough to fill a pad. Since then has been having spotting it has slowly been improving. Has noted post sex bleeding in the past and it was believed to be due to low progesterone. States she does feel lightheaded but that has been persistent since the started. She was started on iron pills last week. Has had similar symptoms with her previous pregnancies. Has not had any abdominal pain. Denies fevers, chills, chest pain, shortness of breath, weakness, numbness, diarrhea, constipation, dysuria. No other concerns noted. Related Data Home Medications ?Medication ?Instructions ?Recorded ?Confirmed mv-mn no.97-folic 180 mcg-dha 25 tab PO 11/01/24 11/01/24 mg-herb no.293 25 mg chewable tablet (Alive Daily Support ) Previous Rx's ?Medication ?Instructions ?Recorded propranolol 60 mg capsule,24 60 mg PO DAILY #90 caps 06/12/24 hr,extended release propranolol 10 mg tablet 20 mg (2 x 10 mg) PO .COMPLEX #30 09/26/24 tabs Allergies Allergy/AdvReac Type Severity Reaction Status Date / Time No Known Allergies Allergy Verified 11/30/24 20:32 Review of Systems Status of ROS: Reports: 10 or more systems reviewed and unremarkable except as noted in History and below [facility] Medical History Sinusitis ?J32.9 - Chronic sinusitis, unspecified (ICD-10) Abdominal pain ?R10.9 - Unspecified abdominal pain (ICD-10) Pre-op exam ?Z01.818 - Encounter for other preprocedural examination (ICD-10) Endometriosis ?N80.9 - Endometriosis, unspecified (ICD-10) Seborrheic dermatitis ?L21.9 - Seborrheic dermatitis, unspecified (ICD-10) BMI less than 19,adult ?Z68.1 - Body mass index [BMI] 19.9 or less, adult (ICD-10) Surgical History H/O laparoscopy ?Z98.890 - Other specified postprocedural states (ICD-10) Family History Father Kidney stone Paternal Grandmother Colon cancer Maternal Grandmother Pancreatic cancer Sister Endometriosis Social History Narrative: Never smoker. 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 . two kids no nsaids 3 etoh/wk Smoking Status: Never smoker How often do you have a drink containing alcohol: never AUDIT-C Alcohol total score: 0 Non-prescribed substance use: denies use Exam Narrative: Exam Narrative: Const: Well-nourished, Well-developed, in no distress Eyes: PERRL, no conjunctival injection, and symmetrical lids HENT: Atraumatic external nose and ears. Moist mucous membranes. Neck: Symmetric, trachea midline, No thyromegaly. CVS: RRR, No murmurs or gallops. Peripheral pulses 2+ and equal in all extremities RESP: Unlabored respiratory effort. Clear to auscultation bilaterally. GI: Nontender/Nondistended, No rebound or guarding. MSK:Extremities w/o deformity, Normal Active ROM Skin: Warm, Dry. No rashes or lesions. Neuro: Normal Muscle tone, No focal neurological deficits. Psych: Awake, Alert, & Oriented x3. Appropriate mood and affect. Const: Vital Signs, click to edit/add: Vital Signs - 24 hr 11/30/24 20:32 Temperature 99.3 F Pulse Rate [Pulse Oximeter] 89 Respiratory Rate 16 Blood Pressure [Ri ght Upper Arm] 116/83 Pulse Oximetry 100 Oxygen Delivery Me thod Room Air Course Vital Signs Vital signs: Initial Vital Signs Temperature 99.3 F 11/30/24 20:32 Temperature Source Temporal Artery Scan 11/30/24 20:32 Pulse Rate 89 11/30/24 20:32 Respiratory Rate 16 11/30/24 20:32 Blood Pressure 116/83 11/30/24 20:32 Blood Pressure Mean 94 11/30/24 20:32 Blood Pressure Position Sitting 11/30/24 20:32 Pulse Oximetry 100 11/30/24 20:32 Oxygen Delivery Method Room Air 11/30/24 20:32 Vital Signs Temperature 99.3 F 11/30/24 20:32 Pulse Rate 89 11/30/24 20:32 Respiratory Rate 16 11/30/24 20:32 Blood Pressure 116/83 11/30/24 20:32 Pulse Oximetry 100 11/30/24 20:32 Oxygen Delivery Method Room Air 11/30/24 20:32 Temperature 99.3 F 11/30/24 20:32 Pulse Rate 89 11/30/24 20:32 Respiratory Rate 16 11/30/24 20:32 Blood Pressure 116/83 11/30/24 20:32 Pulse Oximetry 100 11/30/24 20:32 Oxygen Delivery Method Room Air 11/30/24 20:32 Medical Decision Making MDM Narrative Medical decision making narrative: Patient is a 32-year-old female presents emergency department for vaginal bleeding. She is 17 weeks . Will do a CBC and a transvaginal ultrasound. Type and screen also ordered. Ultrasound shows placenta previa but otherwise healthy . Because she is under 17 weeks patient will be discharged. I did speak to her on-call OB provided states she needs close follow-up. Patient is A negative and has needed RhoGAM in the past. Will give her RhoGAM. Her hemoglobin is slightly lower but with her this is expected. She is safe for discharge. While waiting for the RhoGAM she did mention to me your is also arch negative. Considering Her and her are Rh negative she does not need a RhoGAM. Lab Data Labs: Lab Results 11/30/24 11/30/24 11/30/24 Range/Units 21:55 21:58 22:06 WBC 8.69 (4.50-11.00) K/uL RBC 3.71 L (4.00-5.20) m/uL Hgb 10.2 L (12.0-16.0) gm/dL Hct 31.0 L (33.0-51.0) % MCV 84 (80-100) fL MCH 28 (26-34) pg MCHC 33 (32-36) gm/dL RDW Coeff of Edilberto 13.8 (11.5-15.5) % Plt Count 195 (140-440) K/uL Neut % (Auto) 60.4 (42.0-72.0) % Lymph % (Auto) 29.2 (20-44) % [place] % (Auto) 6.4 (0.0-11.0) % Eos % (Auto) 3.6 (0.0-7.0) % Baso % (Auto) 0.2 (0.0-3.0) % Neut # (Auto) 5.24 (1.7-7.0) K/uL Lymph # (Auto) 2.54 (0.90-2.90) K/uL [place] # (Auto) 0.60 (0.00-0.90) K/UL Eos # (Auto) 0.31 (0.00-0.50) K/uL Baso # (Auto) 0.02 (0.00-0.30) K/uL Abs Immat Gran (auto) 0.02 (0.00-0.30) K/uL Imm/Tot Granulo (auto) 0.2 % Lab Acknowledgement Test Added Blood Type A Negative Antibody Screen NEGATIVE Imaging Data Transvaginal ultrasound: Attestation: I have reviewed the pertinent imaging results. Radiologist's impression: 1. Single living intrauterine gestation in transverse position with heart rate 144 beats per minute. 2. The placental edge partially covers the internal cervical os compatible with placenta previa. Recommend close clinical follow-up and referral to maternal medicine specialist. Dictated by Ruby Pedroza MD @ 11/30/2024 9:53:29 PM Discharge Plan Discharge Clinical Impression: Placenta previa Qualifiers: Trimester: second trimester Qualified Code(s): O44.02 - Complete placenta previa NOS or without hemorrhage, second trimester Patient Disposition: Home, Self-Care Condition: Stable Instructions: Placenta Previa (ED) Additional Instructions: Your ultrasound appears to show placenta previa. Is recommend you give close outpatient follow-up with the OB. Return to emergency department for worsening bleeding. Prescriptions: No Action Alive Daily Support 180 mcg-25 mg- 25 mg tablet,chewable PO propranolol 60 mg capsule,extended release 24 hr 60 mg PO DAILY Qty: 90 0RF propranolol 10 mg tablet 20 mg PO .COMPLEX Qty: 30 0RF Rx Instructions: 20 mg orally; take 2 tabs twice daily for 5 days and then 1 tab twice daily for 5 days and then stop Follow Up/Referrals: Gaviota Grullon MD [Primary Care Provider] - Stand Alone Forms: [facility] Info Instructions
[2024-11-30 22:08] LABS: Basophils Absolute Auto 0.02 K/uL (0.00-0.30); Basophils Percent Auto 0.2 % (0.0-3.0); Eosinophils Absolute Auto 0.31 K/uL (0.00-0.50); Eosinophils Percent Auto 3.6 % (0.0-7.0); Hemoglobin* 10.2 gm/dL (12.0-16.0); Immature Granulocytes Abs Auto 0.02 K/uL (0.00-0.30); Immature Granulocytes Pct Auto 0.2 %; Lymphocytes Absolute Auto 2.54 K/uL (0.90-2.90); Lymphocytes Percent Auto 29.2 % (20-44); Mean Corpuscular HGB Conc 33 gm/dL (32-36); Mean Corpuscular Hemoglobin 28 pg (26-34); Mean Corpuscular Volume 84 fL (80-100); Monocytes Percent Auto 6.4 % (0.0-11.0); Neutrophils Absolute Auto 5.24 K/uL (1.7-7.0); Neutrophils Percent Auto 60.4 % (42.0-72.0); Platelet Count* 195 K/uL (140-440); RDW Coefficient of Variation % 13.8 % (11.5-15.5); Red Blood Count 3.71 m/uL (4.00-5.20); White Blood Count* 8.69 K/uL (4.50-11.00)
[2024-11-30 22:44] LABS: Slide Review Reflex No
== END 2024-12-01 00:04 | disposition home or self-care (01) ==
PROVIDERS: Emergency Provider Student in an Organized Health Care Education/Training Program; PCP Emergency Medicine
DX: O44.02 Complete placenta previa NOS or without hemorrhage, second trimester (principal); Z3A.17 17 weeks gestation of pregnancy
CPT/HCPCS: 36415; 76815; 76817; 85025; 86850; 86900; 86901; 99284

== ENCOUNTER 2025-03-19 10:45 | Outpatient (CLI) | payer OTHER, SELFPAY ==
--- NOTE | 2025-03-26 14:18 | ONC.NURNOTE ---
Diagnosis: NETTE in
== END 2025-03-19 10:46 | disposition home or self-care (01) ==
LOC: NFLDREF 03-24 06:39
PROVIDERS: PCP Emergency Medicine; Referring Provider Emergency Medicine; Visit Provider Registered Nurse
DX: O99.013 Anemia complicating pregnancy, third trimester (principal); O26.893 Other specified pregnancy related conditions, third trimester; R42 Dizziness and giddiness; Z3A.33 33 weeks gestation of pregnancy
CPT/HCPCS: 82728

== ENCOUNTER 2025-03-23 11:41 | Outpatient (CLI) | payer OTHER, SELFPAY | END 2025-03-23 11:42 | disposition home or self-care (01) | LOC: NFLDREF 04-02 07:23 | PROVIDERS: PCP Emergency Medicine; Referring Provider Emergency Medicine; Visit Provider Advanced Practice Midwife | DX: Z20.828 Contact with and (suspected) exposure to other viral communicable diseases (principal) | CPT/HCPCS: 86747 ==

== ENCOUNTER 2025-04-04 11:30 | Outpatient (RCR) | payer OTHER, SELFPAY ==
[2025-03-28 11:38] VITALS: BP 105/59; PULSE 88; RESP 16; TEMP 36.6; O2SAT 99
[2025-03-28] MEDS: FERRIC CARBOXYMALTOSE 750 MG in 0.9 % SODIUM CHLORIDE 250 ml 250 ML 800 MG IVPB (12:01)
[2025-03-28] MEDS: SODIUM CHLORIDE 0.9 % (FLUSH) 10 ML SYRINGE IVF (12:27)
[2025-03-28 12:29] VITALS: BP 94/61; PULSE 91; RESP 16; O2SAT 99
[2025-03-28 13:02] VITALS: BP 98/65; PULSE 87; RESP 12; TEMP 37; O2SAT 97
[2025-04-04 11:47] VITALS: BP 105/71; PULSE 84; RESP 16; TEMP 36.9; O2SAT 100
[2025-04-04] MEDS: FERRIC CARBOXYMALTOSE 750 MG in 0.9 % SODIUM CHLORIDE 250 ml 250 ML 1060 MG IVPB (12:10)
[2025-04-04] MEDS: SODIUM CHLORIDE 0.9 % (FLUSH) 10 ML SYRINGE IVF (12:11)
[2025-04-04 13:08] VITALS: BP 107/66; PULSE 100; RESP 18; O2SAT 99
== END 2025-09-24 23:59 | disposition home or self-care (01) ==
LOC: CCIC 11:30
PROVIDERS: PCP Emergency Medicine; Visit Provider Clinical Nurse Specialist
DX: O99.013 Anemia complicating pregnancy, third trimester (principal); D50.9 Iron deficiency anemia, unspecified
CPT/HCPCS: 96365; 96374; J1439; J7050

== ENCOUNTER 2025-04-10 14:56 | Outpatient (CLI) | payer OTHER, SELFPAY | END 2025-04-10 14:57 | disposition home or self-care (01) | LOC: NFLDREF 04-16 07:42 | PROVIDERS: PCP Emergency Medicine; Referring Provider Emergency Medicine; Visit Provider Advanced Practice Midwife | DX: Z34.83 Encounter for supervision of other normal pregnancy, third trimester (principal) | CPT/HCPCS: 87081; 87653 ==

== ENCOUNTER 2025-04-17 16:24 | Outpatient (CLI) | payer OTHER, SELFPAY ==
--- NOTE | 2025-04-17 16:30 | CRLHL7_ITS ---
For Patients: As a result of the Century Cures Act, medical imaging exams and procedure reports are released immediately into your electronic medical record. You may view this report before your referring provider. If you have questions, please contact your health care provider. OB ULTRASOUND FOLLOW-UP, 04/17/2025 CLINICAL HISTORY: Measuring small for dates. COMPARISON: 11/30/2024 (outside facility). TECHNIQUE: Real time bennett scale imaging of the fetus was performed. Transabdominal imaging performed. FINDINGS: RICHARD by LMP: 05/05/2025. GA: 37 weeks 3 days. GESTATION: Single. CERVIX: Not visualized. POSITIONING: Vertex. AMNIOTIC FLUID: 6.1 cm SDP. PLACENTA: Technique: TA. Placenta Position: Posterior. DOPPLERS: Heart Rate: 154 bpm. BIOMETRY: BPD: 8.2 cm, 32 weeks 5 days. <3% HC: 31.6 cm, 35 weeks 4 days. <3% AC: 33.9 cm, 37 weeks 5 days. 74.9% FL: 7.1 cm, 36 weeks 2 days. 213% FL/AC Ratio: 20.87% HC/AC: 0.93 EFW: 2968 g, 6 lb 9 oz. Age by this US: 35 weeks 4 days. RICHARD by this US: 05/18/2025. Percentile by RICHARD: 35.2% IMPRESSION: 1. Sonographic gestational age 35 weeks 4 days with sonographic due date 05/18/2025. Sonographic age is 13 days behind the clinical age. 2. Estimated weight 35th percentile. Abdominal circumference 75th percentile. 3. BPD and HC are both less than 3rd percentile. Keith Adame M.D. Diagnostic Radiologist [email or web address] Transcribed: 8:34 am DW/Dictated by: Keith Adame MD @ 04/22/2025 5:33:00 AM (Electronically Signed)
== END 2025-04-17 16:25 | disposition home or self-care (01) ==
LOC: US 16:24
PROVIDERS: PCP Emergency Medicine; Visit Provider Obstetrics & Gynecology
DX: O36.5930 Maternal care for other known or suspected poor fetal growth, third trimester, not applicable or unspecified (principal); Z3A.37 37 weeks gestation of pregnancy
CPT/HCPCS: 76816

== ENCOUNTER 2025-05-12 08:03 | Inpatient (IN) | payer OTHER, SELFPAY ==
[2025-05-12] VITALS (22 sets, daily range): BP systolic 98–114; BP diastolic 58–74; PULSE 59–86; TEMP 36.6–36.9; O2SAT 100; BMI 23.6
--- NOTE | 2025-05-12 08:11 | W.PM.LDBA ---
Subjective History of Present Illness Date Seen: 05/12/25 Narrative: Patient is being admitted to Labor and Delivery for IOL for postdates. She is a 34 year old at 41 0/7 weeks gestation. Her full history and physical was dictated by Dr Andrei Santos on 04/17/2025. Please see this for details. she did have some contractions starting at 3 am every 10 min, but they seem to have resolved. No LOF, vaginal bleeding. Good movement. Specific Issues/Plans G 5 P 3013 : Oscar Transfer from [facility] at 31.4 weeks H&P by CGM 04/17/25 #Measuring smaller than dates Growth US 04/17/25: EFW 2968g at 35%ile, AC 75%ile # echogenic intracardiac focus NIPT: negative # placenta previa, resolved # history of IUGR with 1st # Rh negative Rhogam: 02/28/25 at [facility] # failed 1 hour glucose, passed 3 hour! # HIV repeatedly reactive. Non-reactive HIV 1 and HIV 1/2. Previous records: Labs: Blood type A negative. antibody screen negative. Hemoglobin 13. Platelets 250. Rubella 6.36. RPR nonreactive. Hepatitis-B antigen negative. HIV repeatedly reactive. HIV 1 not detected, HIV 1/2 not detected. Urine culture: NEGATIVE. TSH 1.79. Hepatitis-C nonreactive. Varicella 4.34. NIPT negative. 1 hour glucose: 186. 3 hour glucose 71,135,121, 60. Pap smear 02-01-23 [?], HPV negative. Chlam/gc [declined]. Initial ultrasound: 10/08/2024: heart rate 173 beats per minute gestational age 10 weeks 1 day. RICHARD 05/05/2025. 20 week anatomy scan: 12/06/2024: [facility]uz at 18 weeks 4 days. No anomalies commonly detected by ultrasound were identified in the detailed anatomic survey within the limits of ultrasound. Growth parameters and estimated weight were consistent with gestational age predicted by assigned RICHARD. The amniotic fluid volume appeared normal. On transvaginal imaging the cervix appeared long and closed. There is a posterior placenta previa. There is an echogenic intracardiac focus. Twenty-four week ultrasound: 01/18/2025: Single live IUP. Cardiac motion seen. Previa appears to have resolved. Placental edge measures approximately 2.2-2.9 cm from internal os. EIF seen again. Thirty week ultrasound: Single live IUP. Cardiac motion seen. Thirty-one weeks 3 days. 3 lb 11 oz. 23%. Placenta is greater than 2 cm from internal os. Vaccinations: COVID: [] Flu: N/A Tdap: Completed RhoGAM: Completed RSV: N/A 32 week mental health: 03/07/25 HB03/19/25 10.9 Last pap: 02/01/23 neg with neg HPV per note in records OB - Problem Based A/P Additional Plan (1) Post term : Status: Acute (2) Bloodstained amniotic fluid: Status: Acute Plan ASSESSMENT:?? 34 at 41 0/7 weeks gestation?? complicated by:??maternal Rh neg, received rhogam, previa-resolved, cardiac EIF-NIPT neg, anemia in preg, HIV reactive-HIV1 and 2 negative. Labor type: Induced, Not yet in labor?? Category 1 FHR pattern.??? Labor complicated by: IOL?? GBS negative? PLAN:?? 1. Routine intrapartum cares as ordered. Options reviewed for IOL. Pt desires AROM. Bloody fluid. 2. Monitoring per policy, intermittent?? 3. Planning unmedicated . Desires water . Consent signed. Hep C negative. Candidate for analgesia of choice.??? 4. Patient encouraged to reposition and ambulate to promote physiologic labor and .?? 5. Anticipate ? OB Result Labs Blood Type: A (-) negative Rubella: immune RPR/VDLR: nonreactive GBS Status: negative HBsAG: negative OB Exam Physical Exam Narrative: Vitals Reviewed Constitutional:? Alert and oriented x3 HEENT:? Normocephalic, atraumatic Neck:? Supple Lungs:? Clear to auscultation bilaterally Heart:? Regular rate and rhythm, no murmur, rub or gallop Abdomen:? Soft, nontender, and gravid. Vertex by Pérez's, confirmed with cervical exam. Extremities:? No edema or erythema Cervix: 2-3 cm/70%/-1 station/vertex with palpable sutures, AROM bloody fluid, minimal fluid escaped, but vernix and amniotic sac seen in palm. Was very careful to not snag the cervix, but membranes were swept prior to ROM. NST: 145 bpm/moderate variability/accelerations present/decelerations absent/contractions irreg, palpating mildly, 30-90sec duration. No FHR changes after ROM.
[2025-05-12 09:07] LABS: Hematocrit 37.9 % (33.0-51.0); Hemoglobin* 12.3 gm/dL (12.0-16.0); Immature Granulocytes Abs Auto 0.10 K/uL (0.00-0.30); Immature Granulocytes Pct Auto 1.0 %; Lymphocytes Absolute Auto 2.04 K/uL (0.90-2.90); Mean Corpuscular HGB Conc 33 gm/dL (32-36); Mean Corpuscular Hemoglobin 29 pg (26-34); Mean Corpuscular Volume 89 fL (80-100); RDW Coefficient of Variation % 13.5 % (11.5-15.5); Red Blood Count 4.26 m/uL (4.00-5.20); White Blood Count* 9.65 K/uL (4.50-11.00)
[2025-05-12 09:11] LABS: Slide Review Reflex No
--- NOTE | 2025-05-12 13:29 | PM.OBPNL ---
Subjective Date Seen: 05/12/25 Narrative: Patient was admitted to Labor and Delivery for IOL for postdates. She is a 34 year old at 41 0/7 weeks gestation. She has not had any increase in contractions since AROM. No further LOF noted. Good movement. Vaginal bleeding decreased after previous exam. She is eating and drinking fluids. her husand, Oscar, and mother, Medina are here supporting her at bedside. Specific Issues/Plans G 5 P 3013 : Oscar Transfer from [facility] at 31.4 weeks H&P by CGM 04/17/25 #Measuring smaller than dates Growth US 04/17/25: EFW 2968g at 35%ile, AC 75%ile # echogenic intracardiac focus NIPT: negative # placenta previa, resolved # history of IUGR with 1st # Rh negative Rhogam: 02/28/[address] [facility] # failed 1 hour glucose, passed 3 hour! # HIV repeatedly reactive. Non-reactive HIV 1 and HIV 1/2. Previous records: Labs: Blood type A negative. antibody screen negative. Hemoglobin 13. Platelets 250. Rubella 6.36. RPR nonreactive. Hepatitis-B antigen negative. HIV repeatedly reactive. HIV 1 not detected, HIV 1/2 not detected. Urine culture: NEGATIVE. TSH 1.79. Hepatitis-C nonreactive. Varicella 4.34. NIPT negative. 1 hour glucose: 186. 3 hour glucose 71,135,121, 60. Pap smear 02-01-23 [?], HPV negative. Chlam/gc [declined]. Initial ultrasound: 10/08/2024: heart rate 173 beats per minute gestational age 10 weeks 1 day. RICHARD 05/05/2025. 20 week anatomy scan: 12/06/2024: [facility] at 18 weeks 4 days. No anomalies commonly detected by ultrasound were identified in the detailed anatomic survey within the limits of ultrasound. Growth parameters and estimated weight were consistent with gestational age predicted by assigned RICHARD. The amniotic fluid volume appeared normal. On transvaginal imaging the cervix appeared long and closed. There is a posterior placenta previa. There is an echogenic intracardiac focus. Twenty-four week ultrasound: 01/18/2025: Single live IUP. Cardiac motion seen. Previa appears to have resolved. Placental edge measures approximately 2.2-2.9 cm from internal os. EIF seen again. Thirty week ultrasound: Single live IUP. Cardiac motion seen. Thirty-one weeks 3 days. 3 lb 11 oz. 23%. Placenta is greater than 2 cm from internal os. Vaccinations: COVID: [] Flu: N/A Tdap: Completed RhoGAM: Completed RSV: N/A 32 week mental health: 03/07/25 HB03/19/25 10.9 Last pap: 02/01/23 neg with neg HPV per note in records Objective Exam: Objective: Constitutional: Alert and oriented x3, no distress, coping well Vital signs stable, see nurse documentation Abdomen: gravid, contractions palpate mild with contractions and soft between Cervix: 3 cm/80%/-1 station/vertex, Moderate bloody show. Baby feels ROT, and rotated to SVEN with membrane sweep. No forebag palpated. NST: 135 bpm/no audible increases or decreases. Irregular mild, contractions Vital Signs: Last Vital Signs Temp 98.5 F 05/12/25 13:09 Pulse 78 05/12/25 13:07 BP 98/64 05/12/25 13:07 Pulse Ox 100 05/12/25 08:26 Plan Plan: ASSESSMENT:?? 34 at 41 0/7 weeks gestation?? complicated by:??maternal Rh neg, received rhogam, previa-resolved, cardiac EIF-NIPT neg, anemia in preg, HIV reactive-HIV1 and 2 negative. Labor type: Induced, Not yet in labor?? Category 1 FHR pattern.??? Labor complicated by: IOL, bloody minimal amniotic fluid?? GBS negative? PLAN:?? 1. Routine intrapartum cares as ordered. Pt will inversions, then side lying releases then will initiate pitocin per protocol, low dose. 2. Monitoring per policy, intermittent?? 3. Planning unmedicated . Desires water . Consent signed. Hep C negative. Candidate for analgesia of choice.??? 4. Patient encouraged to reposition and ambulate to promote physiologic labor and .?? 5. Anticipate ?
[2025-05-12] MEDS: OXYTOCIN 30 unit/500 ML in NS 30 UNIT/500 ML BAG IVPB (15:44)
[2025-05-12] MEDS: LACTATED RINGERS 1000 ML 1,000 ML 30 ML IV (15:44)
--- NOTE | 2025-05-12 17:43 | PM.OBPNL ---
Subjective Date Seen: 05/12/25 Narrative: Patient was admitted to Labor and Delivery for IOL for postdates. She is a 34 year old at 41 0/7 weeks gestation. Intensity of contractions has increased since initiation of pitocin. No further LOF noted. Good movement. She has been drinking fluids. Her , Oscar, and mother, Medina are here supporting her at bedside. Specific Issues/Plans G 5 P 3013 : Oscar Transfer from [facility] at 31.4 weeks H&P by CGM 04/17/25 #Measuring smaller than dates Growth US 04/17/25: EFW 2968g at 35%ile, AC 75%ile # echogenic intracardiac focus NIPT: negative # placenta previa, resolved # history of IUGR with 1st # Rh negative Rhogam: 02/28/[address] [facility] # failed 1 hour glucose, passed 3 hour! # HIV repeatedly reactive. Non-reactive HIV 1 and HIV 1/2. Previous records: Labs: Blood type A negative. antibody screen negative. Hemoglobin 13. Platelets 250. Rubella 6.36. RPR nonreactive. Hepatitis-B antigen negative. HIV repeatedly reactive. HIV 1 not detected, HIV 1/2 not detected. Urine culture: NEGATIVE. TSH 1.79. Hepatitis-C nonreactive. Varicella 4.34. NIPT negative. 1 hour glucose: 186. 3 hour glucose 71,135,121, 60. Pap smear 02-01-23 [?], HPV negative. Chlam/gc [declined]. Initial ultrasound: 10/08/2024: heart rate 173 beats per minute gestational age 10 weeks 1 day. RICHARD 05/05/2025. 20 week anatomy scan: 12/06/2024: [facility]uz at 18 weeks 4 days. No anomalies commonly detected by ultrasound were identified in the detailed anatomic survey within the limits of ultrasound. Growth parameters and estimated weight were consistent with gestational age predicted by assigned RICHARD. The amniotic fluid volume appeared normal. On transvaginal imaging the cervix appeared long and closed. There is a posterior placenta previa. There is an echogenic intracardiac focus. Twenty-four week ultrasound: 01/18/2025: Single live IUP. Cardiac motion seen. Previa appears to have resolved. Placental edge measures approximately 2.2-2.9 cm from internal os. EIF seen again. Thirty week ultrasound: Single live IUP. Cardiac motion seen. Thirty-one weeks 3 days. 3 lb 11 oz. 23%. Placenta is greater than 2 cm from internal os. Vaccinations: COVID: [] Flu: N/A Tdap: Completed RhoGAM: Completed RSV: N/A 32 week mental health: 03/07/25 HB03/19/25 10.9 Last pap: 02/01/23 neg with neg HPV per note in records Objective Exam: Objective: Constitutional: Alert and oriented x3, mild distress, coping well Vital signs stable, see nurse documentation Abdomen: gravid, contractions palpate moderate to strong with contractions and soft between Cervix: 6 cm/90%/0 station/vertex NST: 135 bpm/moderate variability/accelerations present/decelerations absent/contractions q 2 min Vital Signs: Last Vital Signs Temp 98 F 05/12/25 16:51 Pulse 74 05/12/25 16:52 BP 111/74 05/12/25 16:52 Pulse Ox 100 05/12/25 08:26 Plan Plan: ASSESSMENT:?? 34 at 41 0/7 weeks gestation?? complicated by:??maternal Rh neg, received rhogam, previa-resolved, cardiac EIF-NIPT neg, anemia in preg, HIV reactive-HIV1 and 2 negative. Labor type: Induced, active labor? Category 1 FHR pattern.??? Labor complicated by: IOL, bloody minimal amniotic fluid?? GBS negative? PLAN:?? 1. Routine intrapartum cares as ordered. Continue pitocin per protocol, but to turn off or decrease as patient desires. 2. Monitoring per policy, intermittent?? 3. Planning unmedicated . Desires water . Consent signed. Hep C negative. Candidate for analgesia of choice.??? 4. Patient encouraged to reposition and ambulate to promote physiologic labor and .?Encouraged to get into tub soon.? 5. Anticipate ?
--- NOTE | 2025-05-12 18:39 | W.PM.OBVAGDE ---
OB Procedure Vag Delivery Mother Details Mother Details: The patient is a 34 year-old, 5, Para 4, admitted on 05/12/25 at Days gestation. Admission Date: 05/12/25 Additional Details Amniotic Membrane Status: AROM Amniotic Membrane Rupture Date: 05/12/25 Amniotic Membrane Rupture Time: 09:26 Amniotic Membrane Fluid Description: Bloody (and minimal fluid) Analgesia/Anesthesia Type: None Waterbirth: Yes Pitcoin: Yes Intrapartal Events: Labor Induction (pitocin turned off prior to and had only been titrated up to 2) Induction Method: per pitocin protocol and AROM Labor Onset: 15:45 Complete: 18:13 Pushin:13 Heart: heart tones during second stage were category 1 Delivery Details Delivery Date: 05/12/25 Delivery Time: 18:18 Route of delivery: Infant Gender: Female Infant Viability: Alive; Heart Rate Present Position at Delivery: OA Delivery Details: Patient was admitted for IOL for post term and progressed quickly after pitocin initiation. AROM very small amount of bloody fluid noted at 0926. Patient was complete at 1813 and pushing at 1813. of a viable female at 1818 in semifowlers in the tub. Vertex delivered OA. One nuchal cord easily slipped after delivery of the head. We did not begin trying to deliver the body immediately after the head was born until the next contraction. With the next urge, anterior shoulder did not release in this position as mom kept pulling her bottom away from me. Possible shoulder dystocia Zenaida asked to stand and put her right foot up on the edge of the tub. In this postion, she was still pulling her bottom away from me, but body did deliver at approx 90 sec total after the head was out. Father assisted to deliver his daughter from abdomen down. He then passed passed to mothers abdomen with excellent tone. Cord was clamped and cut at > 5 minutes. APGARS were 7 at one minute and 8 at five minutes respectively. Mouth was bulb suctioned. Intact placenta with a 3 vessel cord delivered spontaneously at 1828. Fundus firm. No lacerations identified. EBL 150 cc. (100 in tub, 50 in bed). Mother and baby stable; mother plans to breastfeed. weight pending.? ? 1 Minute Interval Total Score: 7 5 Minute Interval Total Score: 8 Additional Details Shoulder Dystocia: Yes Placenta Delivery Time: 18:28 Placental Delivery Description: Spontaneous Procedure Done: Global Blood Loss: 150 Laceration: None Blood Loss Measurement Type: EBL (due to waterbirth) Cord Vessel Description: 3 Vessels, Nuchal Cord, Loose and Reduced Event Summary Status: Mother and infant were stable after delivery. Disposition: floor
[2025-05-12] MEDS: IBUPROFEN 600 MG TABLET PO (23:56)
[2025-05-13 00:05] VITALS: BP 108/66; PULSE 78; RESP 16; TEMP 37.1; O2SAT 97
[2025-05-13 04:00] VITALS: BP 98/64; PULSE 74; RESP 16; TEMP 36.9; O2SAT 97
[2025-05-13 06:47] LABS: Hemoglobin* 11.5 gm/dL (12.0-16.0)
[2025-05-13] MEDS: DOCUSATE SODIUM 100 MG CAPSULE PO (07:46)
[2025-05-13] MEDS: IBUPROFEN 600 MG TABLET PO ×3 (07:46→22:25)
[2025-05-13 07:57] VITALS: BP 103/68; PULSE 68; RESP 16; TEMP 36.7; O2SAT 98
--- NOTE | 2025-05-13 08:16 | PM.OBPNVD1 ---
OB - PN:Subj Subjective Date Seen: 05/13/25 Patient comments OB post-: no complaints, pain well controlled and tolerating diet infant status: and doing well feeding status: exclusively Narrative: Zenaida feels well.? Her pain is well controlled with current medications.? She has no new complaints.? Urinary output is adequate and she is voiding without difficulty.? Has a good appetite, is tolerating a general diet, is not yet passing flatus, encouraged ambulation. If not gas by this afternoon she will let the RN know.? Has small amount of rubra lochia.? She is ambulating well.?She will plan for discharge tomorrow as baby is planning to stay yet tonight. OB - PN: Obj Exam Physical Exam: Vital signs: Temp Pulse Resp BP Pulse Ox O2 Del Method 98.0 F 68 16 103/68 98 Room Air 05/13/25 07:57 05/13/25 07:57 05/13/25 07:57 05/13/25 07:57 05/13/25 07:57 05/13/25 07:57 Narrative: GENERAL APPEARANCE:? normal affect, alert, no distress? MOOD:? appropriate? CHEST:? clear to auscultation and percussion? HEART:? regular rate and rhythm? ABDOMEN:? soft, non-tender the uterine fundus is U/2 and is appropriate for the stage of recovery.? PERINEUM:? mild edema of the perineum, there is a intact perineum that is healing well.? EXTREMITIES:? normal and no edema? OB - PN: Obj Data Labs Labs: Laboratory Results - last 24 hr 05/12/25 05/13/25 08:58 06:04 WBC 9.65 RBC 4.26 Hgb 12.3 11.5 L Hct 37.9 MCV 89 MCH 29 MCHC 33 RDW Coeff of Edilberto 13.5 Plt Count 192 Neut % (Auto) 70.7 Lymph % (Auto) 21.1 [place] % (Auto) 6.2 Eos % (Auto) 0.7 Baso % (Auto) 0.3 Neut # (Auto) 6.81 Lymph # (Auto) 2.04 [place] # (Auto) 0.60 Eos # (Auto) 0.07 Baso # (Auto) 0.03 Abs Immat Gran (auto) 0.10 Imm/Tot Granulo (auto) 1.0 OB - PN: A/P Delivery Assessment and Plan (1) Lactating mother: Status: Acute (2) care following vaginal delivery: Status: Acute (3) Rh negative status during : Problem details: received rhogam Status: Acute Plan day: 1 Plan: routine care Comments: Anticipate discharge home tomorrow.
[2025-05-13] MEDS: ACETAMINOPHEN 500 MG TABLET 1000 MG PO ×2 (12:12→20:39)
[2025-05-13 12:33] VITALS: BP 103/69; PULSE 70; RESP 16; TEMP 36.5; O2SAT 97
[2025-05-13 16:04] VITALS: BP 96/62; PULSE 67; RESP 16; TEMP 36.8; O2SAT 96
[2025-05-13 20:00] VITALS: BP 107/67; PULSE 84; RESP 20; TEMP 36.6; O2SAT 97
[2025-05-14] MEDS: ACETAMINOPHEN 500 MG TABLET 1000 MG PO (02:35)
[2025-05-14 02:40] VITALS: BP 105/70; PULSE 82; RESP 16; TEMP 36.6; O2SAT 96
[2025-05-14 07:52] VITALS: BP 98/57; PULSE 75; RESP 16; TEMP 36.8; O2SAT 97
[2025-05-14] MEDS: DOCUSATE SODIUM 100 MG CAPSULE PO (08:01)
[2025-05-14] MEDS: IBUPROFEN 600 MG TABLET PO (12:19)
--- NOTE | 2025-05-14 12:49 | PM.OBDSVD1 ---
DS: Providers Provider Date Seen: 05/14/25 Date of admission: 05/12/25 08:03 Primary care physician: Gaviota Grullon Admitting Clinician: Delmis Hardy CNM Attending Physician on discharge: Sia Osuna CNM Date of Discharge: 05/14/25 DS: Diagnosis Discharge Diagnosis (1) care following vaginal delivery: Status: Acute (2) Lactating mother: Status: Acute Exam Narrative: Exam Narrative: VSS, afebrile GENERAL APPEARANCE: ?normal affect, alert, no distress MOOD: ?appropriate HEENT: normocephalic, neck supple, full ROM CHEST: ?Symmetrical chest wall movement. ?Normal respiratory effort. ?Clear to auscultation HEART: ?regular rate and rhythm ABDOMEN: ?soft, non-tender. Uterine fundus is firm, at Umbilicus, Midline and is appropriate for the stage of recovery. ?Bowel sounds present. PERINEUM: ?mild edema of the perineum, intact. EXTREMITIES: ?normal and no edema Const: Vital Signs, click to edit/add: Vital Signs - 24 hr 05/13/25 16:04 05/13/25 20:00 05/14/25 02:40 Temperature 98.2 F 97.9 F 97.9 F Pulse Rate [Pulse Oximeter] 67 84 82 Respiratory Rate 16 20 16 Blood Pressure [Le ft Arm] 96/62 107/67 105/70 Pulse Oximetry 96 97 96 Oxygen Delivery Me thod Room Air Room Air Room Air 05/14/25 07:52 Temperature 98.3 F Pulse Rate [Pulse Oximeter] 75 Respiratory Rate 16 Blood Pressure [Le ft Arm] 98/57 L Pulse Oximetry 97 Oxygen Delivery Me thod Room Air Documenting provider has reviewed patient's vital signs: yes OB - DS: Summary Hospital Course Hospital Course: Zenaida is a 34 y.o. who was admitted to [facility] for labor. ?She had an uncomplicated NVD.?The patient feels well. ?The pain is well controlled with current medications. ?She has no new complaints. ?She is breast feeding and reports things are going well.? the patient has done well.? Vitals have been stable.? She has remained afebrile.? Has a good appetite, is tolerating a general diet. ?She is voiding without difficulty.? She is passing gas and has had a bowel movement.? She is ambulating and denies any dizziness.? Has Small amount of rubra lochia. ?She is planning IUD for prevention. Peripartum Data delivery method: Vaginal Laceration description: None complications: none [place] Gender: Female Discharge Plan: Home Status at Discharge Functional status at discharge: independent ambulation Overall status at discharge: patient is progressing back to baseline Time Spent with Patient Time attestation: Total time spent providing and/or coordinating discharge services: Time spent: Less than 30 minutes Discharge Plan Discharge Disposition: Home, Self-Care Date of Admission: 05/12/25 08:03 Attending Provider on Discharge: Sia Osuna Primary Care Provider: Gaviota Grullon Condition: Stable Anticipated Discharge Date/Time: 05/14/25 13:00 Discharge Medications: New acetaminophen 500 mg Tablet 1,000 mg PO Q6H PRNQty: 0 0RF docusate sodium 100 mg Capsule 100 mg PO DAILY Qty: 90 0RF ibuprofen 600 mg Tablet 600 mg PO Q6H PRNQty: 60 0RF Continued Alive Daily Support 180 mcg-25 mg- 25 mg tablet,chewable 1 tab PO DAILY PRN ferrous fumarate-vitamin C 132-250 mg tablet 65 tab PO DAILY PRN Discontinued aspirin 81 mg tablet,delayed release (DR/EC) 81 mg PO QDAY Discharge Orders: Discharge Order (Routine); Ordered 05/14/25 Ordered By: Sia Osuna Patient Education: OB Over the Counter Medication Information, OB Vaginal/Breast Feeding Additional Instructions: Discharge instructions were reviewed with the patient including signs and symptoms of infection and home going medications Nothing vaginally for 6 weeks: no tampons or intercourse Off Work or School for 6 weeks 2-week visit: discuss feeding concerns, review control options and screen for anxiety/depression. 6-week visit for an annual exam. consultation services are available to all mothers and babies for the first year after delivery.? To make an appointment, please call [phone]. Activity Level: Activity as Tolerated Discharge Diet: Regular Follow Up Appointments: [facility] [Provider Group] Forms: BackOps Info Instructions
== END 2025-05-14 14:00 | disposition home or self-care (01) | DRG 807 ==
PROVIDERS: Admitting Provider Midwife; PCP Emergency Medicine; Visit Provider Midwife
DX: O48.0 Post-term pregnancy (principal); Z37.0 Single live birth; O41.8X30 Other specified disorders of amniotic fluid and membranes, third trimester, not applicable or unspecified; O26.893 Other specified pregnancy related conditions, third trimester; Z67.11 Type A blood, Rh negative; Z3A.41 41 weeks gestation of pregnancy
CPT/HCPCS: 36415; 85018; 85025; 85461; 86592; A9270; J7120

== ENCOUNTER 2025-06-26 11:11 | Outpatient (CLI) | payer OTHER, SELFPAY | END 2025-06-26 11:12 | disposition home or self-care (01) | LOC: LKVREF 11:12 | PROVIDERS: Visit Provider Midwife | DX: Z39.2 Encounter for routine postpartum follow-up (principal) | CPT/HCPCS: 86038 ==

== ENCOUNTER 2025-09-13 11:13 | Outpatient (CLI) | payer OTHER, SELFPAY | END 2025-09-13 11:14 | disposition home or self-care (01) | PROVIDERS: Visit Provider Physician Assistant Medical | DX: R10.13 Epigastric pain (principal) | CPT/HCPCS: 80053; 83690; 84443 ==

== ENCOUNTER 2025-10-01 11:51 | Outpatient (CLI) | payer OTHER, SELFPAY ==
--- NOTE | 2025-10-01 12:00 | CRLHL7_ITS ---
For Patients: As a result of the Century Cures Act, medical imaging exams and procedure reports are released immediately into your electronic medical record. You may view this report before your referring provider. If you have questions, please contact your health care provider. INDICATION: post prandial epigastric pain TECHNIQUE: 7.3 mCi Tc-99m Mebrofenin was injected intravenously. Images of the liver, gallbladder and abdomen were obtained for 60 minutes. CCK was then administered and imaging continued for an additional 30 minutes. COMPARISON: Ultrasound right upper quadrant 03/15/2024 FINDINGS: There is good uptake of activity by the hepatocytes. There is visualization of the biliary tree, gallbladder and small bowel. In response to 1 mcg CCK administration, there is a normal gallbladder ejection fraction of 92 percent. IMPRESSION: 1. Normal study. There is no evidence of acute or chronic cholecystitis. 2. Normal gallbladder ejection fraction of 92 percent. Dictated by Keith Adame MD @ 10/02/2025 11:02:27 AM (Electronically Signed)
== END 2025-10-01 11:52 | disposition home or self-care (01) ==
LOC: NM 11:52
PROVIDERS: PCP Physician Assistant Medical; Visit Provider Physician Assistant Medical
DX: R10.13 Epigastric pain (principal)
CPT/HCPCS: 78227; A9537; J2805

== ENCOUNTER 2025-10-03 10:15 | Outpatient (CLI) | payer OTHER, SELFPAY ==
--- NOTE | 2025-10-03 11:25 | P.ANES_ITS ---
Anesthesia Charges Start Date/Time Anesthesia Start Date: 10/03/25 Anesthesia Start Time: 11:08 Stop Date/Time Anesthesia Stop Date: 10/03/25 Anesthesia Stop Time: 11:22 Coding CPT Codes CPT Codes: ANES UPR GI NDSC PX NOS - 29346 ([id number]) P1 - NORMAL HEALTHY PATIENT, QK - POWER STATION OPERATOR 2-4 CNCRNT ANES PROC, QX - DISASTER RECOVERY SPECIALIST SVGilson W/ MED DIRECTION
--- NOTE | 2025-10-03 11:25 | W.ANESCHARGE ---
Anesthesia Charges Start Date/Time Anesthesia Start Date: 10/03/25 Anesthesia Start Time: 11:08 Stop Date/Time Anesthesia Stop Date: 10/03/25 Anesthesia Stop Time: 11:22 Coding CPT Codes CPT Codes: ANES UPR GI NDSC PX NOS - 34640 ([id number]) P1 - NORMAL HEALTHY PATIENT, QK - THREAD CUTTER 2-4 CNCRNT ANES PROC, QX - EDGER LINER SVGilson W/ MED DIRECTION
--- NOTE | 2025-10-03 11:37 | P.ANES_ITS ---
Anesthesia Charges Start Date/Time Anesthesia Start Date: 10/03/25 Anesthesia Start Time: 11:08 Stop Date/Time Anesthesia Stop Date: 10/03/25 Anesthesia Stop Time: 11:22 Coding CPT Codes CPT Codes: ANES UPR GI NDSC PX NOS - 72925 ([id number]) P1 - NORMAL HEALTHY PATIENT, QK - JEWEL CORNER BRUSHING MACHINE OPERATOR 2-4 CNCRNT ANES PROC, QX - OXYACETYLENE BURNER SVGilson W/ MED DIRECTION
--- NOTE | 2025-10-03 11:37 | W.ANESCHARGE ---
Anesthesia Charges Start Date/Time Anesthesia Start Date: 10/03/25 Anesthesia Start Time: 11:08 Stop Date/Time Anesthesia Stop Date: 10/03/25 Anesthesia Stop Time: 11:22 Coding CPT Codes CPT Codes: ANES UPR GI NDSC PX NOS - 37763 ([id number]) P1 - NORMAL HEALTHY PATIENT, QK - RUBBER GRINDER 2-4 CNCRNT ANES PROC, QX - FULFILLMENT COORDINATOR SVGilson W/ MED DIRECTION
== END 2025-10-03 10:16 | disposition home or self-care (01) ==
LOC: OP CLINIC 10:15
PROVIDERS: PCP Physician Assistant Medical; Visit Provider Surgery
DX: R10.13 Epigastric pain (principal)
CPT/HCPCS: 00731; 43239; J2704; J3490

== ENCOUNTER 2025-10-25 14:03 | Outpatient (CLI) | payer OTHER, SELFPAY ==
--- NOTE | 2025-10-25 14:00 | CRLHL7_ITS ---
For Patients: As a result of the Century Cures Act, medical imaging exams and procedure reports are released immediately into your electronic medical record. You may view this report before your referring provider. If you have questions, please contact your health care provider. INDICATION: epigastric pain COMPARISON: none TECHNIQUE: Real time bennett scale imaging and color Doppler analysis was performed of the right upper quadrant. FINDINGS: The patient`s liver is of normal size and has uniform echogenicity. There is a normal appearance of the hepatic IVC and proximal abdominal aorta. There is no evidence of ascites. The gallbladder is of normal size and there is no evidence of intraluminal stones or sludge. The gallbladder wall measures 1.1 mm in thickness. The common bile duct is of normal size and measures 2.1 mm in diameter at the level of the erica hepatis. The pancreas appears normal. There is no evidence of a stone or hydronephrosis within the right kidney. The right kidney measures 11.7 cm in length. IMPRESSION: Normal right upper quadrant ultrasound. Dictated by Keith Adame MD @ 10/25/2025 3:05:14 PM (Electronically Signed)
== END 2025-10-25 14:04 | disposition home or self-care (01) ==
LOC: US 14:03
PROVIDERS: PCP Physician Assistant Medical; Visit Provider Physician Assistant Medical
DX: R10.13 Epigastric pain (principal); K90.49 Malabsorption due to intolerance, not elsewhere classified
CPT/HCPCS: 76705

== ENCOUNTER 2025-10-31 11:07 | Outpatient (CLI) | payer OTHER, SELFPAY ==
[2025-10-31 22:28] LABS: Bacterial Vaginosis* Negative (Negative); Candida glab/krus NOT DETECTED (No Detected)
== END 2025-10-31 11:08 | disposition home or self-care (01) ==
PROVIDERS: PCP Physician Assistant Medical; Visit Provider Registered Nurse
DX: N89.8 Other specified noninflammatory disorders of vagina (principal)
CPT/HCPCS: 81513; 87086; 87481; 87661

== ENCOUNTER 2025-11-05 08:45 | Outpatient (CLI) | payer OTHER, SELFPAY | END 2025-11-05 08:46 | disposition home or self-care (01) | LOC: NFLDREF 11-11 05:49 | PROVIDERS: PCP Physician Assistant Medical; Referring Provider Physician Assistant Medical; Visit Provider Physician Assistant Medical | DX: D64.9 Anemia, unspecified (principal) | CPT/HCPCS: 82607; 82728; 82747 ==

== ENCOUNTER 2025-11-08 13:49 | Outpatient (CLI) | payer OTHER, SELFPAY ==
--- NOTE | 2025-11-08 14:00 | CRLHL7_ITS ---
For Patients: As a result of the Century Cures Act, medical imaging exams and procedure reports are released immediately into your electronic medical record. You may view this report before your referring provider. If you have questions, please contact your health care provider. Indication: NAUSEA. BACK PAIN W/EATING, QUESTION SMA SYNDROME Technique: CT Abdomen/Pelvis 52CC ISOVUE 370 AND WATER PREP intravenous contrast Please note that all CT scans at this facility use dose modulation, iterative reconstruction, and/or weight-based dosing when appropriate to reduce radiation dose to as low as reasonably achievable. Comparison: Ultrasound 10/15/2025 Findings: Lung bases are clear. Liver unremarkable. Normal gallbladder and spleen. Adrenal glands and kidneys normal. Normal pancreas. Uterus and bladder normal. No pelvic mass. Trace physiologic pelvic free fluid. Increased stool in the colon. No small bowel obstruction. No adenopathy. The stomach and duodenum are normal in caliber. The aorto mesenteric angle is 15.6 degrees. The aorto mesenteric distance is 8.4 millimeters. Normal osseous structures. Impression: The aorto mesenteric angle and aorto mesenteric distance are both decreased. However, the stomach and proximal duodenum are normal in caliber. Colonic constipation. Please note that all CT scans at this facility use dose modulation, iterative reconstruction, and/or weight-based dosing when appropriate to reduce radiation dose to as low as reasonably achievable. Dictated by Keith Adame MD @ 11/11/2025 8:49:31 AM (Electronically Signed)
== END 2025-11-08 13:50 | disposition home or self-care (01) ==
LOC: CT 13:49
PROVIDERS: PCP Physician Assistant Medical; Visit Provider Surgery
DX: R10.13 Epigastric pain (principal); K59.00 Constipation, unspecified; R11.0 Nausea
CPT/HCPCS: 74177; Q9967